=== PATIENT | male | born 1940 | race Caucasian/White ===

== ENCOUNTER 2018-12-09 14:26 | Inpatient (IN) | payer MEDICARE ==
[2018-12-09 16:35] LABS: CKMB 2.9 ng/mL (0-6.6)
[2018-12-09 20:30] LABS: Troponin I 0.061 ng/mL (< 0.028)
[2018-12-09] MEDS ORDERED: Ondansetron PF 4 MG/2 ML Vial IVP PRN (20:50)
[2018-12-09] MEDS ORDERED: Ondansetron ODT 4 MG TAB PO PRN (20:50)
[2018-12-09] MEDS ORDERED: Acetaminophen 325 MG TAB PO PRN (20:50)
[2018-12-09] MEDS ORDERED: HYDROcodone/Acetaminophen 5/325 mg Tablet PO PRN (20:53)
[2018-12-09] MEDS: Atorvastatin Calcium 40 MG TAB PO SCH (22:26)
[2018-12-09 22:58] LABS: Troponin I 0.069 ng/mL (< 0.028)
--- NOTE | 2018-12-10 00:55 | HP ---
PRIMARY CARE PHYSICIAN: Dominique Coulter MD CODE STATUS: Full code. TIME OF EVALUATION: 7:50 p.m. CHIEF COMPLAINT: Shortness of breath. HISTORY OF PRESENT ILLNESS: This is a 78-year-old male patient with past medical history of congestive heart failure, pacemaker, hypertension, reported a cancer of unknown type, came to the hospital after having severe gradually worsening shortness of breath that started today with no clear triggers. No alleviating factors, associated with significant bilateral leg edema. He reported the pacemaker has not been working properly. He also reported having some history of COPD, he already received some Lasix. The patient has responded well as reported and is feeling better now. The patient has also increased urinary frequency and the Daigle was placed. The patient also has hematuria, probably traumatic. REVIEW OF SYSTEMS: CONSTITUTIONAL: No fever. The patient has chills, generalized weakness. RESPIRATORY: The patient has cough. No sputum production. The patient has shortness of breath. CARDIOVASCULAR: No chest pain or palpitations. GASTROINTESTINAL: No nausea, no vomiting, diarrhea, or abdominal pain. AIR DISPATCHER: No dizziness, headache or feeling lightheaded. GENITOURINARY: No burning on urination. EXTREMITIES: Bilateral leg swelling. All other systems were reviewed and negative except for the findings mentioned above. PAST MEDICAL HISTORY: Positive for congestive heart failure, pacemaker, and hypertension. SURGICAL HISTORY: Pacemaker placement, back surgery. PSYCH HISTORY: No previous psych history. SOCIAL HISTORY: No alcohol. The patient usually smokes half a pack per day. FAMILY HISTORY: Reviewed and noncontributory for current presentation. KNOWN ALLERGIES: No known drug allergies. REPORTED MEDICATIONS: Aspirin. PHYSICAL EXAMINATION: VITAL SIGNS: On presentation, blood pressure 165/89, with heart rate 133, respiratory rate was 20, and temperature 97.6. Oxygen saturation was 95 on room air. Heart rate has been controlled lately. GENERAL APPEARANCE: The patient is alert, oriented, not in acute distress. HEENT: Eyes, normal conjunctivae. Moist oral mucosa. Anicteric. Bilateral JVD. RESPIRATORY: Bilateral air entry. No rales. No wheezes. Symmetric expansion. CARDIOVASCULAR: Normal rate, regular rhythm. No murmurs. No gallop. EXTREMITIES: Bilateral leg edema. ABDOMEN: Soft, normal bowel sounds. MUSCULOSKELETAL: Baseline range of motion and strength. No tenderness. SKIN: Warm, intact. No pallor. No rash. No redness. VASCULAR: Peripheral pulses are present. Capillary refill seems to be intact. NEURO: No evidence of any new focal weakness. Baseline speech. Cranial nerves seems to be intact. PSYCH: The patient is in good mood. No anxiety. Optimal judgment. DIAGNOSTIC STUDIES: EKG was reviewed. The patient has a paced rhythm with occasional conduction that is not paced, could be atrial fibrillation with aberrantly conducted complexes, QRS 154, QT corrected 522. Chest x-ray was reviewed. The patient has small bilateral pleural effusions. Mild vascular congestion, stable cardiomyopathy, cor pulmonale. No confluent pneumonia. LABORATORY DATA: Labs were reviewed. The patient has white count 7.7, hemoglobin 17, MCV 94, platelet count 262. Chemistry; sodium 136, potassium 4.3, chloride 102, carbon dioxide 22, anion gap 16, BUN 11, creatinine 1.05, GFR 69, glucose 112, calcium 9.4, total bilirubin 0.9, AST 26, ALT 19, alkaline phosphatase 61, CK-MB 2.9, troponin 0.069. Beta natriuretic peptide 1163. Serum total protein 7.0, albumin 4.1, globulin 2.9, albumin to globulin ratio is 1.4. ASSESSMENT AND PLAN: The patient presented to the hospital for the following medical problems: 1. Acute exacerbation of congestive heart failure, we will place the patient on Lasix, reconcile home medications. 2. Possible malfunction of the pacemaker, the patient is not pacing all the time, we will reconcile home medications, adjust the treatment as needed. Pacemaker interrogation. 3. Deep venous thrombosis prophylaxis. 4. Uncontrolled hypertension. Blood pressure was 165 on presentation, the patient had received some Lasix, we will monitor, we will treat accordingly. We will reconcile home medications. 5. Coronary artery disease, troponin mildly elevated. We will trend, likely secondary to [id number] myocardial infarction, type 2. We will treat accordingly. Initial troponin was 0.069. This is likely [id number] myocardial infarction, type 2. We will trend, we will adjust treatment depending on further results. Job ID: [id number]
[2018-12-10 05:42] LABS: #Basophils 0.1 thou/uL (0.0-0.2); #Eosinphils 0.1 thou/uL (0.0-0.7); #Lymphocytes 1.1 thou/uL (1.20-3.40); #Neutrophils 7.8 thou/uL (1.40-6.50); %Basophils 0.6 % (0.0-1.0); %Eosinophils 0.8 % (0.0-10.0); %Lymphocytes 10.7 % (21.0-51.0); %Neutrophils 77.9 % (42.0-75.0); Hemoglobin 14.8 g/dL (14.0-18.0); Mean Corpuscular HGB CONC 32.6 g/dL (32.0-36.0); Mean Corpuscular Hemoglobin 31.2 pg (27.0-31.0); Mean Corpuscular Volume 95.7 fL (78.0-98.0); Mean Platelet Volume 8.4 fL (7.4-10.4); Platelet Count 138 thou/uL (130-400); RBC Distribution Width 12.1 % (11.5-14.5); Red Blood Cell (RBC) Count 4.76 mill/uL (4.70-6.10)
[2018-12-10 06:00] LABS: Anion Gap 13 mmol/L (10-20); BUN (Urea Nitrogen) 14 mg/dL (8.4-25.7); Calc. Creatinine Clearance 55 mL/min (70-130); Calcium 8.8 mg/dL (7.8-10.44); Carbon Dioxide 28 mmol/L (23-31); Chloride 101 mmol/L (98-107); Estimated GFR-MDRD 77; Glucose 84 mg/dL (83-110); Potassium 3.6 mmol/L (3.5-5.1); Sodium 138 mmol/L (136-145)
[2018-12-10] MEDS ORDERED: Furosemide 20 MG TAB PO SCH (09:00)
[2018-12-10] MEDS ORDERED: Furosemide 40 MG/4 ML VIAL SLOW IVP SCH (09:00)
[2018-12-10] MEDS: Carvedilol 3.125 MG TAB PO SCH ×2 (09:07→17:22)
[2018-12-10] MEDS: Tamsulosin HCl 0.4 MG CAP PO SCH (09:07)
[2018-12-10] MEDS: Lisinopril 10 MG TAB PO SCH (09:07)
[2018-12-10] MEDS: Aspirin 81 mg Enteric Coated Tablet PO SCH (09:07)
[2018-12-10] MEDS: Enoxaparin Sodium 40 MG/0.4 ML SYRINGE SC SCH (09:08)
[2018-12-10] MEDS: Mometasone/Formoterol 120 PUFF INHALER INH SCH ×2 (10:52→19:03)
--- NOTE | 2018-12-10 11:54 | PDOC.PN ---
- Subjective Encounter Start Date: 12/10/18 Encounter Start Time: 09:30 Subjective: Patient examined today -: Reports he feels less SOB today, denies CP, palpations - Objective Resuscitation Status - Order Detail: 12/09/18 20:50 Resuscitation Status Routine Resuscitation Status: FULL: Full Resuscitation Vital Signs & Weight: Vital Signs (12 hours) Temp Pulse Resp BP Pulse Ox 12/10/18 07:58 97.5 F L 92 20 135/73 94 L 12/10/18 03:10 97.7 F 94 15 125/80 94 L 12/09/18 23:58 97.8 F 96 20 120/67 94 L Weight Weight 59.103 kg I&O: 12/09/18 12/10/18 12/11/18 06:59 06:59 06:59 Intake Total 240 Output Total 225 Balance 15 Result Diagrams: 12/10/18 05:31 12/10/18 05:31 Phys Exam - Physical Examination HEENT: PERRLA, moist MMs Neck: no nodes, no JVD Respiratory: no rhonchi Diffuse rhonchi, patient is a smoker Cardiovascular: RRR Gastrointestinal: soft, non-tender Has kim in place, draining tea colored urine Musculoskeletal: no edema, pulses present Neurological: non-focal Lymphatic: no nodes Psychiatric: normal affect, A&O x 3 Skin: no rash, normal turgor Dx/Plan (1) COPD (chronic obstructive pulmonary disease) Status: Chronic (2) CHF (congestive heart failure) Code(s): I50.9 - HEART FAILURE, UNSPECIFIED Status: Chronic (3) CHF exacerbation Code(s): I50.9 - HEART FAILURE, UNSPECIFIED Status: Acute (4) Urinary retention due to benign prostatic hyperplasia Code(s): N40.1 - BENIGN PROSTATIC HYPERPLASIA WITH LOWER URINARY TRACT SYMP; R33.8 - OTHER RETENTION OF URINE Status: Acute (5) Hematuria Code(s): R31.9 - HEMATURIA, UNSPECIFIED Status: Acute - Plan Consult cardiology, CHF exacerbation, runs of V tach -: Last Echo 10-15% in 2014, trops trending up, Repeat Echo today -: Will monitor I/O, urine -: Recheck labs, monitor VS, PRN nebs ordered -: IV lasix dc'd, Home dose of PO lasix added for tomorrow * .
[2018-12-10 13:28] VITALS: BMI 18.6
--- NOTE | 2018-12-10 15:58 | CON ---
DATE OF CONSULTATION: REASON FOR CONSULTATION: Congestive heart failure. HISTORY OF PRESENT ILLNESS: Mr. Reagan is a 78-year-old gentleman, who is a patient of Dr. Ryan Degroot. He underwent bypass surgery in 2009. He does have a history of cardiomyopathy, status post pacemaker. He recently complained of increased shortness of breath. No chest pain or pressure noted. He continues to smoke. He states he feels better after Lasix. PAST MEDICAL HISTORY: 1. CAD status post bypass surgery. 2. Ischemic cardiomyopathy. 3. BPH. 4. Continued tobacco abuse. 5. Hypertension. 6. ICD placement. ALLERGIES: NONE. SOCIAL HISTORY: Continued tobacco use. REVIEW OF SYSTEMS: Ten-point review of systems is reviewed and as above, otherwise negative. HOME MEDICATIONS: 1. Lasix. 2. Lisinopril. 3. Carvedilol. 4. Aspirin. 5. Spironolactone. 6. Finasteride. 7. Atorvastatin. 8. Tamsulosin. PHYSICAL EXAMINATION: GENERAL: Patient is a pleasant male, who is in no acute distress. The patient appears older than stated age. VITAL SIGNS: Blood pressure 135/73, pulse 92, temperature 97.5. NEUROLOGIC: The patient is alert and oriented x3 with no focal neurologic deficits. HEENT: Sclerae without icterus. Mouth has moist mucous membranes with normal pallor. NECK: No JVD. Carotid upstroke brisk. No bruits bilaterally. LUNGS: Crackles noted bilaterally. BACK: No scoliosis or kyphosis. CARDIAC: Regular rate and rhythm with normal S1 and S2. No S3 or S4 noted. No significant rubs, murmurs, thrills, or gallops noted throughout the precordium. PMI is not displaced. There is no parasternal heave. ABDOMEN: Soft, nontender, nondistended. No peritoneal signs present. No hepatosplenomegaly. No abnormal striae. EXTREMITIES: 2+ femoral and 2+ dorsalis pedis pulses. No cyanosis, clubbing, or edema. SKIN: No gross abnormalities. PERTINENT LABORATORY DATA: Hemoglobin 14.8. Creatinine 0.95. Peak troponin 0.06. IMPRESSION: 1. Acute on chronic systolic heart failure. 2. Coronary artery disease. 3. Tobacco abuse. 4. Status post bypass surgery. RECOMMENDATIONS: The patient has responded well to Lasix. He states he feels much better. His Lasix has been changed to p.o. dosing. Continue carvedilol, atorvastatin, and aspirin. We will also continue lisinopril. If stable, he will be okay from my standpoint to discharge home in a.m. with close outpatient followup. I did psychotherapist counselor him on cessation of tobacco products. Job ID: [id number]
[2018-12-10] MEDS: Atorvastatin Calcium 40 MG TAB PO SCH (21:03)
[2018-12-11] MEDS: Mometasone/Formoterol 120 PUFF INHALER INH SCH ×2 (07:12→19:50)
[2018-12-11 08:19] LABS: #Eosinphils 0.1 thou/uL (0.0-0.7); #Lymphocytes 1.2 thou/uL (1.20-3.40); #Monocytes 0.9 thou/uL (0.11-0.59); #Neutrophils 5.1 thou/uL (1.40-6.50); %Basophils 0.1 % (0.0-1.0); %Eosinophils 1.1 % (0.0-10.0); %Lymphocytes 15.9 % (21.0-51.0); %Monocytes 12.1 % (0.0-10.0); %Neutrophils 70.8 % (42.0-75.0); Hemoglobin 14.1 g/dL (14.0-18.0); Mean Corpuscular HGB CONC 32.2 g/dL (32.0-36.0); Mean Corpuscular Hemoglobin 30.7 pg (27.0-31.0); Mean Corpuscular Volume 95.2 fL (78.0-98.0); Mean Platelet Volume 8.6 fL (7.4-10.4); Platelet Count 121 thou/uL (130-400); RBC Distribution Width 12.1 % (11.5-14.5); Red Blood Cell (RBC) Count 4.59 mill/uL (4.70-6.10); White Blood Cell (WBC) Count 7.2 thou/uL (4.8-10.8)
[2018-12-11 08:39] LABS: Anion Gap 11 mmol/L (10-20); BUN (Urea Nitrogen) 15 mg/dL (8.4-25.7); Calc. Creatinine Clearance 59 mL/min (70-130); Calcium 8.5 mg/dL (7.8-10.44); Carbon Dioxide 27 mmol/L (23-31); Chloride 99 mmol/L (98-107); Estimated GFR-MDRD 80; Glucose 80 mg/dL (83-110); Potassium 3.4 mmol/L (3.5-5.1); Sodium 134 mmol/L (136-145)
[2018-12-11] MEDS: Lisinopril 10 MG TAB PO SCH (08:41)
[2018-12-11] MEDS: Aspirin 81 mg Enteric Coated Tablet PO SCH (08:41)
[2018-12-11] MEDS: Carvedilol 6.25 MG TAB PO SCH ×2 (08:41→16:48)
[2018-12-11] MEDS: Tamsulosin HCl 0.4 MG CAP PO SCH (08:41)
[2018-12-11] MEDS ORDERED: Furosemide 20 MG TAB PO SCH (09:00)
--- NOTE | 2018-12-11 10:54 | PDOC.CTH ---
Cardiology Progress Note - Subjective Patient still SOB. Now with hematuria. Reviewed ICD check. Frequent episodes of NSVT while inpatient and ICD check. Asymptomatic. - Objective Vital Signs Temp Pulse Resp BP BP BP Pulse Ox 12/11/18 08:41 123/56 L 12/11/18 07:39 97.6 F 71 20 123/56 L 94 L 12/11/18 03:53 97.7 F 100 20 117/62 96 12/10/18 23:03 97.6 F 84 18 113/51 L 96 Admit Weight 130 lb 8 oz Weight 134 lb 12/10/18 12/11/18 12/12/18 06:59 06:59 06:59 Intake Total 240 1700 Output Total 225 875 Balance 15 825 - Physical Examination General/Neuro: alert & oriented x3, other: (cachetic) Neck: no JVD present Lungs: other: (bilateral rhonchi) Heart: RRR Abdomen: NT/ND Extremities: other: (no edema; decreased pedal pulses) - Labs Result Diagrams: 12/11/18 13:17 12/11/18 08:05 Troponin/CKMB CK-MB (CK-2) 2.9 ng/mL (0-6.6) 12/09/18 15:39 Troponin I 0.069 ng/mL (< 0.028) H 12/09/18 22:27 - Assessment/Plan 1. NSVT 2. Acute on chronic systolic CHF 3. ICMO 4. Tobacco Abuse 5. Moderate-Severe PAD 6. Hematuria 7. Long history of noncompliance. Continue current meds. Will obtain CXR. Not a candidate for Amio given advanced COPD. Hesitant to add sotalol due to history of noncompliance. patient not seen in office since 2015. No recent ischemic work-up. Probably needs repeat cath. RG-Pt with no ischemic workup recently. Concerned about increased VT noted after interrogation of ICD. Add sotalol. Pt with COPD and amio may not be a good option. May need a stress test but more likley will need angio.
[2018-12-11] MEDS ORDERED: Sodium Chloride 0.9% 500 ML IV SCH (11:00)
[2018-12-11] MEDS: Enoxaparin Sodium 40 MG/0.4 ML SYRINGE SC SCH (11:37)
--- NOTE | 2018-12-11 12:01 | PDOC.PN ---
- Subjective Encounter Start Date: 12/11/18 Encounter Start Time: 11:59 Mr. Reagan was seen today in follow-up CHF exacerbation and Hematuria and urinary retention - Objective Resuscitation Status - Order Detail: 12/09/18 20:50 Resuscitation Status Routine Resuscitation Status: FULL: Full Resuscitation MAR Reviewed: Yes Vital Signs & Weight: Vital Signs (12 hours) Temp Pulse Resp BP BP Pulse Ox 12/11/18 08:41 123/56 L 12/11/18 07:39 97.6 F 71 20 123/56 L 94 L 12/11/18 03:53 97.7 F 100 20 117/62 96 Weight Admit Weight 130 lb 8 oz Weight 134 lb I&O: 12/10/18 12/11/18 12/12/18 06:59 06:59 06:59 Intake Total 240 1700 Output Total 225 875 Balance 15 825 Result Diagrams: 12/11/18 08:05 12/11/18 08:05 Phys Exam - Physical Examination Respiratory: no wheezing, no rales, no rhonchi, clear to auscultation bilateral Cardiovascular: RRR, no significant murmur, no rub Gastrointestinal: soft, non-tender, positive bowel sounds Musculoskeletal: no edema, pulses present Dx/Plan (1) Acute on chronic systolic heart failure Code(s): I50.23 - ACUTE ON CHRONIC SYSTOLIC (CONGESTIVE) HEART FAILURE Status : Acute (2) Ventricular tachycardia Code(s): I47.2 - VENTRICULAR TACHYCARDIA Status: Chronic (3) Hematuria Code(s): R31.9 - HEMATURIA, UNSPECIFIED Status: Acute (4) Urinary retention due to benign prostatic hyperplasia Code(s): N40.1 - BENIGN PROSTATIC HYPERPLASIA WITH LOWER URINARY TRACT SYMP; R33.8 - OTHER RETENTION OF URINE Status: Acute (5) COPD (chronic obstructive pulmonary disease) Status: Chronic - Plan * Acute on chronic systolic heart failure- compensated- Work-up is in progress by the Cardiology team * NSVT- as above- await further recommendations from Cardiology * Hematuria and Urinary retention- likely due to BPH, which is decompensated due to him being off Flomax a few days.- continue Daigle catheter, and will add CBI, consult his Urologist for further recommendations * COPD- compensated - continue Duonebs as needed and Dulera * Will monitor his H&H due to the Hematuria
--- NOTE | 2018-12-11 12:36 | PDOC.PN ---
- Subjective Encounter Start Date: 12/11/18 Encounter Start Time: 12:30 Subjective: Patient examined, Dr. Chaparro also saw patient today -: Patient eating lunch, denies any complaints -: Urine in kim bag is dark with small clots - Objective Resuscitation Status - Order Detail: 12/09/18 20:50 Resuscitation Status Routine Resuscitation Status: FULL: Full Resuscitation Vital Signs & Weight: Vital Signs (12 hours) Temp Pulse Resp BP BP Pulse Ox 12/11/18 11:33 97.6 F 78 16 80/57 L 95 12/11/18 08:41 123/56 L 12/11/18 07:39 97.6 F 71 20 123/56 L 94 L 12/11/18 03:53 97.7 F 100 20 117/62 96 Weight Admit Weight 59.194 kg Weight 60.781 kg I&O: 12/10/18 12/11/18 12/12/18 06:59 06:59 06:59 Intake Total 240 1700 Output Total 225 875 Balance 15 825 Result Diagrams: 12/11/18 08:05 12/11/18 08:05 Phys Exam - Physical Examination HEENT: PERRLA, moist MMs Neck: no nodes Respiratory: no wheezing, no rales, clear to auscultation bilateral diffuse rhonchi Cardiovascular: RRR, no significant murmur AICD in place upper left chest Musculoskeletal: no edema Neurological: non-focal, normal sensation Lymphatic: no nodes Psychiatric: normal affect, A&O x 3 Skin: no rash, normal turgor Dx/Plan (1) COPD (chronic obstructive pulmonary disease) Status: Chronic (2) CHF (congestive heart failure) Code(s): I50.9 - HEART FAILURE, UNSPECIFIED Status: Chronic (3) CHF exacerbation Code(s): I50.9 - HEART FAILURE, UNSPECIFIED Status: Acute (4) Urinary retention due to benign prostatic hyperplasia Code(s): N40.1 - BENIGN PROSTATIC HYPERPLASIA WITH LOWER URINARY TRACT SYMP; R33.8 - OTHER RETENTION OF URINE Status: Acute (5) Hematuria Code(s): R31.9 - HEMATURIA, UNSPECIFIED Status: Acute (6) Ventricular tachycardia Code(s): I47.2 - VENTRICULAR TACHYCARDIA Status: Chronic - Plan Cardiology has been consulted and has seen pt today -: Kim still in place, 500ml in bag after irrigation/NS 500ml blus -: Urine is dark with small clots, UA and culture ordered -: Urology consulted added per Dr. Chaparro -: Seen by Dr. Chaparro today as well... please see her note * .
[2018-12-11 13:37] LABS: Hemoglobin 14.9 g/dL (14.0-18.0)
--- NOTE | 2018-12-11 14:29 | RAD ---
CHEST 2 VIEWS: Date: 12/11/18 HISTORY: Shortness of breath. COMPARISON: 06/30/15 and 12/09/18 exams. FINDINGS: Heart size within normal limits. There are postop sternotomy changes. Lungs are clear of any infiltra marisel. No signs of failure. External defibrillator device is present. There is some minimal blunting to the costophrenic angles. Old right rib fractures. IMPRESSION: Minimal blunting to the costophrenic angles, which could be chronic in nature. There is suggestion of an element of COPD. No evidence of failure. POS: [facility]
[2018-12-11 14:35] LABS: Bilirubin Negative (Negative); Blood, Urine Large (Negative); Clarity CLOUDY (Clear); Glucose, Urine (Dipstick) Negative (Negative); Leukocyte Small (Negative); Nitrite Negative (Negative); Protein, Urine (Dipstick) 100 mg/dL (Neg-Trace); Specific Gravity, Urine 1.016 (1.002-1.036); pH, Urine 5.5 (5.0-9.0)
[2018-12-11 14:37] LABS: Bacteria/HPF None Seen HPF (None Seen); Hyaline Casts/LPF 0-3 HYALINE CAST LPF (0-3 Hyaline); RBC/HPF GREATER THAN 50-TNTC HPF (0-3); Squamous Epithelial None Seen HPF (0-3); WBC/HPF None Seen HPF (0-3)
--- NOTE | 2018-12-11 15:56 | CT ---
CT OF ABDOMEN AND PELVIS PERFORMED WITH AND WITHOUT CONTRAST ENHANCEMENT: 12/11/18 HISTORY: Gross hematuria. Urinary retention. Small bilateral pleural effusions are noted. There is some patchy parenchymal changes of the right lo wer lobe which could represent some minimal infiltrate. There is linear atelectasis in the left base. The liver, spleen, pancreas and gallbladder regions appear unremarkable. Right and left adrenal glands are normal in appearance. Right and left kidneys are normal in size and not obstructed. There are no renal calculi demonstrated. There are small hypodensities involving bot h kidneys, statistically most likely cysts. One has a few punctate peripheral calcifications in the m id pole region of the right kidney corresponding to more of a Bosniak type II lesion. The largest of these is on the left side measuring 1.7 cm. There is no significant periaortic adenopathy. There is m oderate atherosclerotic change of the aorta. Moderate atherosclerotic disease and suggestion of some narrowing at the origin of the superior mesenteric artery. The infrarenal aorta is ectatic but not aneurysmal. It measures in the 2.[address] OF PELVIS PERFORMED WITH AND WITHOUT CONTRAST ENHANCEMENT: Daigle catheter is seen within the bladder. There is diffuse bladder wall thickening. The prostate is enlarged. Some diverticulosis of the sigmoid colon. IMPRESSION: 1. No evidence of renal or ureteral calculi. Hypodensities in both kidneys are felt to represent cysts. 2. Tiny bilateral pleural effusions with suggestion of some minimal infiltrate in the right lung base. 3. Diffuse bladder wall thickening probably on the basis of bladder outlet obstruction. POS: [facility]
[2018-12-11] MEDS ORDERED: ISOVUE-370 76%-LOCM 1 ML ONE (16:35)
--- NOTE | 2018-12-11 19:00 | CON ---
DATE OF CONSULTATION: 12/11/2018 UROLOGY CONSULTATION REASON FOR CONSULTATION: Urinary retention and gross hematuria. HISTORY OF PRESENT ILLNESS: Mr. Reagan is a 78-year-old male with past urologic history significant for BPH. He reports he saw Dr. Bergeron within the past year as an outpatient. He takes tamsulosin as an outpatient. The patient is admitted currently for acute on chronic systolic heart failure. He had increasing shortness of breath. The patient was evaluated and was given Lasix in [place] and subsequently, he had increasing urinary frequency and hesitancy and difficulty urinating. The patient eventually presented to the hospital, at which point, he once again received diuretic and had increasing voiding difficulty and a Daigle was placed. There was reportedly approximately 1 L of urine within the bladder. Initially, the urine was clear and then, he developed gross hematuria. Prior to this, he has had one episode of gross hematuria in the remote past. He reports he had been doing well at home, on tamsulosin. No significant frequency/urgency/nocturia. No prior procedures on the prostate. No other complaints. REVIEW OF SYSTEMS: Full 12-point review of systems was performed and is negative other than that mentioned in the HPI. PAST MEDICAL HISTORY: Congestive heart failure, coronary artery disease, pacemaker placement, and hypertension. PAST SURGICAL HISTORY: Back surgery, pacemaker placement. FAMILY HISTORY: No history of genitourinary malignancy. SOCIAL HISTORY: No alcohol. He has a [id number] smoking history and currently smokes half a pack per day. ALLERGIES: NO KNOWN DRUG ALLERGIES. MEDICATIONS: Aspirin 325 mg. The patient reports he takes tamsulosin, but it is unclear whether he is currently taking this as an outpatient or not. PHYSICAL EXAMINATION: VITAL SIGNS: Temperature 97.6, pulse 78, respirations 16, oxygen saturation 95% on room air, and blood pressure 100/62. GENERAL: He is alert and oriented x3. No apparent distress. HEENT: Normocephalic, atraumatic. NECK: Supple. No masses. No lymphadenopathy. CARDIOVASCULAR: Regular rate and rhythm. PULMONARY: Breathing unlabored. No wheezing. ABDOMEN: Soft, nontender, and nondistended. No masses or organomegaly. No suprapubic tenderness to palpation. No CVA tenderness. GENITOURINARY: Normal penis without concerning lesion. The scrotum and testes palpably normal. Daigle catheter in place draining blood-tinged urine. Left direct inguinal hernia, reducible and nontender. EXTREMITIES: Warm and well perfused. No edema. NEUROLOGIC: No focal deficits. LABORATORY DATA: White blood cell count 7.2, hemoglobin 14.1, hematocrit 43.7, and platelets 121. Sodium 134, potassium 3.4, chloride 99, bicarb 27, BUN 15, and creatinine 0.92. ASSESSMENT: A 78-year-old male with gross hematuria and urinary retention, history of BPH. PLAN: I discussed the natural history and clinical implications of both urinary retention and gross hematuria with the patient in detail. The patient's urinary retention manifests itself after several doses of Lasix. Prior to this, he reports not having much problem. It is unclear whether he was taking his tamsulosin regularly or not as an outpatient. I also discussed potential etiologies of the gross hematuria including traumatic etiology from the Daigle catheter, infection, inflammation, urolithiasis, and malignancy. Given his smoking history, I will go ahead and perform a workup and order a CT IVP. The patient will require outpatient cystoscopy. If he is an active patient with Dr. Bergeron, this can be performed with her. Otherwise, he can follow up with me as an outpatient for cystoscopy unless his condition worsens in the interim. The patient is receiving tamsulosin as an inpatient and he should continue this as well. Regarding the Daigle catheter, depending on when the patient is otherwise ready for discharge, we will make a decision on whether to give the patient a voiding trial or send him home with his Daigle. Job ID: [id number]
[2018-12-11 19:20] LABS: Hemoglobin 13.8 g/dL (14.0-18.0)
[2018-12-11] MEDS: Sotalol HCl 80 MG TAB PO SCH (22:02)
[2018-12-11] MEDS: Atorvastatin Calcium 40 MG TAB PO SCH (22:03)
[2018-12-12 05:51] LABS: #Eosinphils 0.1 thou/uL (0.0-0.7); #Lymphocytes 1.1 thou/uL (1.20-3.40); #Monocytes 0.6 thou/uL (0.11-0.59); #Neutrophils 3.9 thou/uL (1.40-6.50); %Basophils 0.5 % (0.0-1.0); %Eosinophils 1.9 % (0.0-10.0); %Lymphocytes 19.6 % (21.0-51.0); %Monocytes 10.6 % (0.0-10.0); %Neutrophils 67.3 % (42.0-75.0); Hemoglobin 13.9 g/dL (14.0-18.0); Mean Corpuscular HGB CONC 33.1 g/dL (32.0-36.0); Mean Corpuscular Hemoglobin 31.6 pg (27.0-31.0); Mean Corpuscular Volume 95.7 fL (78.0-98.0); Mean Platelet Volume 8.8 fL (7.4-10.4); Platelet Count 128 thou/uL (130-400); Red Blood Cell (RBC) Count 4.38 mill/uL (4.70-6.10); White Blood Cell (WBC) Count 5.8 thou/uL (4.8-10.8)
[2018-12-12 06:07] LABS: Anion Gap 14 mmol/L (10-20); BUN (Urea Nitrogen) 15 mg/dL (8.4-25.7); Calc. Creatinine Clearance 75 mL/min (70-130); Carbon Dioxide 22 mmol/L (23-31); Chloride 101 mmol/L (98-107); Estimated GFR-MDRD Greater than 90; Glucose 79 mg/dL (83-110); Potassium 3.6 mmol/L (3.5-5.1); Sodium 133 mmol/L (136-145)
--- NOTE | 2018-12-12 06:59 | PRG ---
DATE OF SERVICE: 12/12/2018 SUBJECTIVE: The patient is resting comfortably. No discomfort. He had a CT scan performed yesterday. No worsening of his gross hematuria. No other complaints. OBJECTIVE: VITAL SIGNS: Temperature is 97.5, pulse 86, respirations 16, oxygen saturation 93% on room air, and blood pressure 100/61. GENERAL: He is resting comfortably, in no apparent distress. CARDIOVASCULAR: Regular rate and rhythm. PULMONARY: Breathing unlabored. No wheezing. ABDOMEN: Soft, nontender/nondistended. No masses or organomegaly. No suprapubic tenderness to palpation. No CVA tenderness. GENITOURINARY: Daigle catheter in place, draining blood-tinged urine with no clot present. EXTREMITIES: Warm and well perfused. No edema. NEUROLOGIC: No focal deficits. LABORATORY DATA: White blood cell count 5.8, hemoglobin 13.9, hematocrit 42.0, and platelets 128. Sodium 133, potassium 3.6, chloride 101, bicarbonate 22, BUN 15, and creatinine 0.75. RADIOLOGY DATA: CT of the abdomen and pelvis with and without contrast demonstrated no significant renal or ureteral calculi, likely bilateral renal cysts. No renal masses or hydroureteronephrosis. No other urologic abnormalities. See scan report for details. ASSESSMENT: A 78-year-old male with BPH, urinary retention, gross hematuria, status post Daigle placement. PLAN: At this point, the patient's hematuria seems to be improving. His CT urogram did not demonstrate any significant abnormality to explain the gross hematuria. The patient will likely need outpatient cystoscopy at some point. He has been on tamsulosin. If the patient is otherwise stable for discharge, he can be discharged home with his Daigle catheter in place and followup can be scheduled with Dr. Bergeron who is his primary urologist for voiding trial. Otherwise, if the patient is going to be kept in-house for other reasons, he may be appropriate for voiding trial as an inpatient. Job ID: [id number]
[2018-12-12] MEDS: Mometasone/Formoterol 120 PUFF INHALER INH SCH ×2 (07:15→19:28)
[2018-12-12] MEDS ORDERED: Sodium Chloride 0.9% 10 ML ONE (07:48)
[2018-12-12] MEDS: Aspirin 81 mg Enteric Coated Tablet PO SCH (09:02)
[2018-12-12] MEDS: Carvedilol 6.25 MG TAB PO SCH ×2 (09:03→17:41)
[2018-12-12] MEDS: Sotalol HCl 80 MG TAB PO SCH ×2 (09:04→20:37)
[2018-12-12] MEDS: Tamsulosin HCl 0.4 MG CAP PO SCH (09:05)
--- NOTE | 2018-12-12 12:15 | PDOC.PN ---
- Subjective Encounter Start Date: 12/12/18 Encounter Start Time: 12:13 Subjective: Patient complaining of sob, feels his chest is tight trying to get air in. -: Known COPD but not normally sob. No hemoptysis. Mild cough. -: Denies any chest pain. Kim in place with hematuria improving. No suprapubic pain. - Objective Resuscitation Status - Order Detail: 12/09/18 20:50 Resuscitation Status Routine Resuscitation Status: FULL: Full Resuscitation Vital Signs & Weight: Vital Signs (12 hours) Temp Pulse Resp BP BP BP Pulse Ox 12/12/18 10:45 87/57 L 12/12/18 09:04 86 104/57 L 12/12/18 09:03 104/57 L 12/12/18 08:40 97.9 F 86 20 104/57 L 92 L 12/12/18 03:15 97.5 F L 86 16 100/61 93 L Weight Admit Weight 130 lb 8 oz Weight 139 lb I&O: 12/11/18 12/12/18 12/13/18 06:59 06:59 06:59 Intake Total 1700 240 Output Total 875 400 Balance 825 -160 Result Diagrams: 12/12/18 04:47 12/12/18 04:47 Phys Exam - Physical Examination Constitutional: NAD Well-developed but very thin HEENT: PERRLA, oral pharynx no lesions Neck: no nodes, supple, full ROM crackles at right lung base Cardiovascular: RRR Gastrointestinal: soft, non-tender, no distention, positive bowel sounds Musculoskeletal: no edema, pulses present Neurological: normal sensation, moves all 4 limbs Psychiatric: normal affect, A&O x 3 Dx/Plan (1) Urinary retention Code(s): R33.9 - RETENTION OF URINE, UNSPECIFIED Status: Acute (2) Hematuria Code(s): R31.9 - HEMATURIA, UNSPECIFIED Status: Acute (3) CHF exacerbation Code(s): I50.9 - HEART FAILURE, UNSPECIFIED Status: Chronic (4) CHF (congestive heart failure) Code(s): I50.9 - HEART FAILURE, UNSPECIFIED Status: Chronic (5) COPD (chronic obstructive pulmonary disease) Status: Chronic (6) Ventricular tachycardia Code(s): I47.2 - VENTRICULAR TACHYCARDIA Status: Chronic - Plan cont current plan of care, incentive spirometry Noncompliant with home meds. Hypotensive. Lisinopril d/diomedes. Monitor BP. -: Patient on Sotalol as per Dr. Wade. Awaiting review, possible angio. -: Infiltrate in RLL with crackles on exam. SOB. WCC normal. Afebrile. -: Nebs, ?abx, will discuss with Dr. Chaparro. -: Per Urology, cleared for discharge w/ kim and fup with Dr. Bergeron. For cystoscopy as an outpatient. ADDENDUM: Discussed with Dr. Chaparro, agrees adding on Doxycyline. Continue nebs, and add-on tessalon perles for cough. Otherwise, continue treatment as per Cardiology.
[2018-12-12] MEDS: Lisinopril 10 MG TAB PO SCH (12:19)
--- NOTE | 2018-12-12 12:35 | PRG ---
DATE OF SERVICE: 12/12/2018 SUBJECTIVE: Mr. Reagan is currently doing well with no current complaints. He had one episode of 34 beats of nonsustained VT. It appears he has had left VT outside of that one episode after starting sotalol. OBJECTIVE: VITAL SIGNS: Blood pressure 104/57, pulse 86, and temperature 97.9. LUNGS: Clear to auscultation. HEART: Regular rate and rhythm. ABDOMEN: Soft, nontender, nondistended. EXTREMITIES: No edema. IMPRESSION: 1. Ischemic cardiomyopathy. 2. Continued tobacco abuse. 3. Nonsustained ventricular tachycardia. RECOMMENDATIONS: Mr. Reagan has had 62 episodes of nonsustained VT over the last several months. He has one paced terminated event with no discharge of his device. He does have a history of COPD. We will be reluctant to add amiodarone therapy for suppression. I have added sotalol 80 mg b.i.d. He may need ischemic workup prior to discharge. Job ID: [id number]
[2018-12-12] MEDS: guaiFENesin ER 600 MG TAB PO SCH (17:43)
[2018-12-12] MEDS ORDERED: Benzonatate 100 MG CAP PO PRN (18:36)
[2018-12-12] MEDS: Atorvastatin Calcium 40 MG TAB PO SCH (20:37)
[2018-12-12] MEDS: Doxycycline 100 MG CAP PO SCH (20:37)
[2018-12-13] MEDS: Tamsulosin HCl 0.4 MG CAP PO SCH ×2 (10:25→21:24)
[2018-12-13] MEDS: Doxycycline 100 MG CAP PO SCH ×2 (10:25→21:24)
[2018-12-13] MEDS: Aspirin 81 mg Enteric Coated Tablet PO SCH (10:25)
[2018-12-13] MEDS: Carvedilol 6.25 MG TAB PO SCH ×2 (10:25→17:54)
[2018-12-13] MEDS: guaiFENesin ER 600 MG TAB PO SCH ×2 (10:26→21:23)
[2018-12-13] MEDS: Finasteride 5 MG TAB PO SCH (10:41)
--- NOTE | 2018-12-13 10:48 | PQF ---
Chase Reagan MICHAEL PA [id number] CLINICAL DOCUMENTATION IMPROVEMENT CLARIFICATION FORM: ICD-10 Updated PLEASE DO AN ADDENDUM TO THE PROGRESS NOTE WITH ANY DOCUMENTATION UPDATES OR ADDITIONS AND CARRY THROUGH TO DC SUMMARY. THANK YOU. DATE: 12/13/18 ATTN: GRACY LUKE Please exercise your independent, professional judgment in responding to the clarification form. Clinical indicators are provided on the bottom of this form for your review. Please check appropriate box(s): AMI TYPE: [ x] NSTEMI [ ] AMI Type II [ ] DEMAND ISCHEMIA [ ] Other diagnosis [ ] Unable to determine In addition, please specify: Present on Admission (POA): [ x ] Yes [ ] No [ ] Unable to determine CLINICAL INDICATORS - SIGNS / SYMPTOMS / LABS TROPONIN I : 0.051, 0.061, 0.069 (12/09) PHYSICIAN H & P 12/09/18 (RUBI) : ASSESSMENT/PLAN - 5) TROPONIN MILDLY ELEVATED, WE WILL TREND, LIKELY SECONDARY TO NON-ST- ELEVATION MYOCARDIAL INFARCTION, TYPE 2. WE WILL TREAT ACCORDINGLY. INITIAL TROPONIN WAS 0.069. THIS IS LIKELY NON ST- ELEVATION MYOCARDIAL INFARCTION, TYPE 2. NO FURTHER MENTION OF NON STEMI TYPE II TO DATE RISK: ACUTE ON CHRONIC SYSTOLIC HEART FAILURE CAD TREATMENT: CARDIOLOGY CONSULT SERIAL TROPONINS THANK YOU! HELEN (This form is maintained as a part of the permanent medical record) 2014 [employer]. All Rights Reserved Helen Ray RN, BSN [email or web address] Office: [phone] [facility]
[2018-12-13] MEDS: Mometasone/Formoterol 120 PUFF INHALER INH SCH ×2 (11:14→18:46)
--- NOTE | 2018-12-13 11:17 | PQF ---
Chase Reagan MICHAEL PA [id number] CLINICAL DOCUMENTATION IMPROVEMENT CLARIFICATION FORM: ICD-10 Updated PLEASE DO AN ADDENDUM TO THE PROGRESS NOTE WITH ANY DOCUMENTATION UPDATES OR ADDITIONS AND CARRY THROUGH TO DC SUMMARY. THANK YOU. DATE: 12/13/2018 ATTN: GRACY LUKE Please exercise your independent, professional judgment in responding to the clarification form. Clinical indicators are provided on the bottom of this form for your review. Please check appropriate box(s): [ ] Pneumonia secondary to (specify organism / underlying disease) [ ] Simple Pneumonia (community acquired - nosocomial) [ ] Bronchopneumonia [ x ] Pneumonia of unknown etiology [ ] Other diagnosis [ ] Unable to determine In addition, please specify: Present on Admission (POA): [ x ] Yes [ ] No [ ] Unable to determine For continuity of documentation, please document condition throughout progress notes and discharge summary. Thank You. CLINICAL INDICATORS - SIGNS / SYMPTOMS / LABS PHYSICIAN PN 12/12/18 (SRINIVASAN) PLAN: INFILTRATE IN RRL WITH CRACKLES ON EXAM. ...DISCUSSED WITH DR. MENDIOLA, AGREES ADDING DOXYCYCLINE. 12/11/18: CT OF ABD/PELVIS: IMPRESSION ( TINY BILATERAL PLEURAL EFFUSIONS WITH SUGGESTION OF SOME MINIMAL INFILTRATE IN THE RIGHT LUNG BASE) RISK: HX OF COPD CURRENT TOBACCO ABUSE ACUTE ON CHRONIC SYSTOLIC HEART FAILURE TREATMENT: PO DOXYCYCLINE (12/12-PRESENT) THANK YOU! ROSE MARY (This form is maintained as a part of the permanent medical record) 2014 [employer]. All Rights Reserved Rose Mary Ray, RN, BSN [email or web address] Office: [phone] [facility]
[2018-12-13] MEDS: Sotalol HCl 80 MG TAB PO SCH (12:45)
--- NOTE | 2018-12-13 12:56 | PDOC.CTH ---
Cardiology Progress Note - Subjective He is doing better. He developed gross hematuria yesterday and continues to have some blood in kim drainage. - Objective Vital Signs Temp Pulse Resp BP BP BP Pulse Ox 12/13/18 12:49 97.7 F 88 16 94/61 12/13/18 12:45 88 94/61 12/13/18 11:13 76 16 12/13/18 10:25 102/66 12/13/18 08:00 97.3 F L 81 16 97/62 98 12/13/18 04:00 97.6 F 84 16 115/66 92 L Admit Weight 130 lb 8 oz Weight 136 lb 12/12/18 12/13/18 12/14/18 06:59 06:59 06:59 Intake Total 240 1200 Output Total 400 1150 Balance -160 50 - Physical Examination General/Neuro: alert & oriented x3, NAD Neck: no JVD present Lungs: CTA, unlabored respirations Heart: RRR Abdomen: NT/ND Extremities: other: (no edema) - Telemetry Telemetry Rhythm: NSR - Labs Result Diagrams: 12/12/18 04:47 12/12/18 04:47 Troponin/CKMB CK-MB (CK-2) 2.9 ng/mL (0-6.6) 12/09/18 15:39 Troponin I 0.069 ng/mL (< 0.028) H 12/09/18 22:27 - Assessment/Plan 1. NSVT 2. Acute on chronic systolic CHF 3. Ischemic CM EF at 20-25% 4. Tobacco Abuse 5. Moderate-Severe PAD 6. Gross hematuria 7. Long history of noncompliance. [address] 9. Acute on chronic systolic heart failure, improved. PLAN: - Continue Sotalol. - Continue other meds. - Will plan on [facility] once hematuria resolved and no longer an issue likely in one month or so. - Needs one more day of monitoring of QTc for his initial sotalol dosing.
--- NOTE | 2018-12-13 15:45 | CON ---
DATE OF CONSULTATION: 12/13/2018 ELECTROPHYSIOLOGY CONSULTATION REFERRING PHYSICIAN: Ha Wade MD REASON FOR CONSULTATION: Nonsustained ventricular tachycardia. HISTORY OF PRESENT ILLNESS: Mr. Reagan is a 78-year-old gentleman, known to our practice for history of ischemic cardiomyopathy, chronic systolic heart failure, left bundle branch block, and ventricular dyssynchrony, who has inclusion of a RESEARCH AND DEVELOPMENT ENGINEER-ICD that was implanted in 2009. He was last seen in clinic in July 2018 , at which point he was doing well without any significant arrhythmia issues and normal functioning device. He was at that time 97% atrial paced for sinus bradycardia and 99% biventricular paced and benefiting from consisting cardiac resynchronization therapy. Unfortunately, Mr. Reagan was noticing increased shortness of breath and presented to [facility] for further evaluation. He felt that he was taking too many medications at home and states he stopped taking his medications approximately 2 months ago, cold turkey. He initially did not notice any significant changes in his health status until the increasing shortness of breath and heart failure started to progress. He continues to smoke cigarettes. He has been given some Lasix in the hospital, which helped resolve his shortness of breath, but he does have some hypotension since he has been admitted. His BiV-ICD was interrogated and showed nonsustained ventricular tachycardia episodes that were self terminating that were quite rare until mid October when they began to increase in frequency. He had 1 episode of treated VT on October 10 that was successfully terminated with ATP sequences. No defibrillator shock has been required to terminate his ventricular tachycardia, arrhythmia issues. Also of note in the device interrogation, his OptiVol fluid index readings have been consistently elevated above threshold since late September into early October showing a study, but gradual increase. Currently, Mr. Reagan is resting comfortably in bed. He denies any heart racing, palpitations, chest pain, pressure, syncope, near syncope, stroke, or stroke- like symptoms. He endorses he did have substantial shortness of breath on presenting to the hospital that is largely resolved. He has not been very active since admitted to the hospital. He has a Daigle catheter in place and is having some hematuria issues as well. PAST MEDICAL HISTORY: 1. Ischemic cardiomyopathy. 2. Ejection fraction 15%, NYHA functional class 3 status. 3. Left bundle branch block. 4. Ventricular tachycardia. 5. Medtronic RESEARCH AND DEVELOPMENT ENGINEER-ICD in situ. 6. Coronary artery disease, status post bypass surgery. 7. Tobacco abuse. 8. BPH. ALLERGIES: NONE. SOCIAL HISTORY: Lives alone. Continues to abuse tobacco. Denies alcohol or illicit drug use. FAMILY HISTORY: Denies sudden cardiac or early-onset coronary artery disease, noncontributory. REVIEW OF SYSTEMS: A 12-point review of systems was conducted and is negative except that listed above in HPI. HOME MEDICATIONS: Include: 1. Furosemide 20 mg daily. 2. Lisinopril 20 mg daily. 3. Carvedilol 25 mg p.o. b.i.d. 4. Aspirin 325 mg p.o. daily. 5. Spironolactone 12.5 mg p.o. daily. 6. Finasteride 5 mg p.o. daily. 7. Atorvastatin calcium 40 mg at bedtime. 8. Tamsulosin 0.4 mg p.o. daily. As mentioned above, the patient stopped all home medications approximately 2 months prior. PHYSICAL EXAMINATION: VITAL SIGNS: Temperature 97.7 degrees Fahrenheit, pulse 88, blood pressure 94/61 , respirations 16, and oxygen is 95% on room air. GENERAL: The patient is alert and oriented, in no apparent distress. Speech is clear. He is somewhat a poor historian. NECK: Supple without jugular venous distention sitting upright. RESPIRATIONS: Even and nonlabored. There are crackles heard to the left lower base and expiratory wheezes to the right lung alexis. NEUROLOGIC: Grossly intact and nonfocal. Gait was not assessed. DATABASE: Device interrogation, the patient has a Medtronic Protecta XT RESEARCH AND DEVELOPMENT ENGINEER-D. Date of implant is 07/03/2015. Battery voltage is 2.97. Lead impedances are stable. Capture thresholds are stable. Current mode is DDDR with a lower rate limit of 70. One episode of ventricular tachycardia successfully terminated with ATP sequence was documented. 62 episodes of nonsustained ventricular tachycardia have been detected largely since mid October. AP 90%, MORTGAGE OR LOAN UNDERWRITER 96.8%. OptiVol fluid index is elevated above threshold ongoing since early October. Telemetry and EKG all were personally reviewed and largely reflect atrial ventricular pacing with no evidence of cardiac resynchronization therapy. Initial 12-lead EKGs are difficult to interpret with a large amount of artifact in the baseline and ectopy. LABORATORY DATA: Chemistry; potassium 3.6, creatinine 0.75. Serial troponins are monitored and currently at 0.069. Hematology was reviewed and is unremarkable. Echocardiogram on 12/10, ejection fraction 20% to 25%. IMPRESSION: 1. Acute on chronic systolic heart failure with severely reduced ejection fraction at 20% to 25%. 2. Ischemic cardiomyopathy. 3. Nonsustained ventricular tachycardia with sotalol initiated for arrhythmia suppression on the evening of 12/11/2018. 4. Ongoing tobacco abuse. 5. Medication noncompliance. 6. Inclusion of Medtronic RESEARCH AND DEVELOPMENT ENGINEER-D. 7. Hypotension. 8. Hematuria. 9. QT prolongation on Sotalol ~560 msec PLAN AND RECOMMENDATIONS: 1. check BNP for fluid status. 2. Discontinue sotalol, QT~ 560 based on 12 lead EKG just obtained. 3. Ultimately, this seems to be a response to him discontinuing all of his home medications 2 months ago, which is when his fluid accumulation began as well as the onset of nonsustained ventricular tachycardia episodes. Recommend resuming and optimizing his heart failure medical management with cardiology and stress the importance of compliance with medications. Job ID: [id number] KATHARINE
--- NOTE | 2018-12-13 16:31 | PDOC.PN ---
- Subjective Encounter Start Date: 12/13/18 Encounter Start Time: 16:28 Patient lying in bed, he reports feeling better today. He is denying any further chest pain or shortness of breath. He remains on sotalol and tolerating well. Will require one more day of monitoring. - Objective Resuscitation Status - Order Detail: 12/09/18 20:50 Resuscitation Status Routine Resuscitation Status: FULL: Full Resuscitation MAR Reviewed: Yes Vital Signs & Weight: Vital Signs (12 hours) Temp Pulse Resp BP BP Pulse Ox 12/13/18 14:35 71 12 12/13/18 12:49 97.7 F 88 16 94/61 12/13/18 12:45 88 94/61 12/13/18 11:13 76 16 12/13/18 10:25 102/66 12/13/18 08:00 97.3 F L 81 16 97/62 95 Weight Admit Weight 130 lb 8 oz Weight 136 lb I&O: 12/12/18 12/13/18 12/14/18 06:59 06:59 06:59 Intake Total 240 1200 Output Total 400 1150 Balance -160 50 Result Diagrams: 12/12/18 04:47 12/12/18 04:47 Radiology Reviewed by me: Yes Phys Exam - Physical Examination Constitutional: NAD HEENT: PERRLA, oral pharynx no lesions Neck: no nodes, full ROM Respiratory: no wheezing, clear to auscultation bilateral Cardiovascular: RRR, no rub Gastrointestinal: soft, positive bowel sounds Musculoskeletal: no edema, pulses present Neurological: non-focal, moves all 4 limbs Lymphatic: no nodes Psychiatric: normal affect, A&O x 3 Skin: no rash, cap refill <2 seconds Dx/Plan (1) NSVT (nonsustained ventricular tachycardia) Code(s): I47.2 - VENTRICULAR TACHYCARDIA Status: Acute (2) Hematuria Code(s): R31.9 - HEMATURIA, UNSPECIFIED Status: Acute (3) CHF (congestive heart failure) Code(s): I50.9 - HEART FAILURE, UNSPECIFIED Status: Chronic (4) COPD (chronic obstructive pulmonary disease) Status: Chronic - Plan cont current plan of care * Continue Sotalol * Cardiology following * Continue EKG monitoring for changes * Continue other home medications * Patient likely discharged tomorrow if cleared by cardiology
--- NOTE | 2018-12-13 19:23 | PRG ---
DATE OF SERVICE: 12/13/2018 SUBJECTIVE: The consultation was actually already done by Dr. Garrett, but he was a patient of mine, that is why I am following up. I previously saw him in June 2017, increased his tamsulosin to b.i.d. and he already been on finasteride and then noted 4 to 6 rbc's. Had him repeat that sample and noticed that again, so I asked him to follow up for both cystoscopy and uroflow. He did not want to do the cystoscopy, so just never followed up at all. In the last month, he decided to stop all his medications because he did not think they were doing anything or needed them. This included the tamsulosin and finasteride. I encouraged him not to do that. He has not had gross hematuria until his catheter was placed. He has had no prior urinary tract infections or kidney stones. No prior episodes of retention. OBJECTIVE: Alert and oriented. Irregular rhythm, regular rate, no MGRs, Bl wheeze noted. On exam, the catheter is in place and did not appear to be stuck with the balloon in the prostate and I did ask the nurse to place catheter care higher. Testes were descended bilaterally without masses. Phallus is circumcised. The urine in the tubing was clear and in the bag with pink-tinged. LABORATORY DATA: Urinalysis from the showed only too numerous to count rbc' s and 100 protein, but with otherwise negative and a CT from 12/11 with contrast showed cyst 1 with cortical calcification making a Bosniak 2, but otherwise not concerning and an enlarged prostate with a large intravesical component with the Daigle in the bladder with air in, otherwise decompressed bladder. ASSESSMENT AND PLAN: We have a 78-year-old male with benign prostatic hyperplasia and retention and now gross hematuria most likely related to the prostate, but he does have a significant smoking history. I told him that we cannot rule out a bladder mass or cancer without cystoscopy, which he should have as an outpatient in the office. I increased the tamsulosin to twice a day. I added back his finasteride and we will try for a voiding trial tomorrow. I have written that the catheter should come out at 5 in the morning. His PVR should be checked after void and documented. Job ID: [id number] [facility]
[2018-12-13] MEDS: Atorvastatin Calcium 40 MG TAB PO SCH (21:24)
[2018-12-14] MEDS: Mometasone/Formoterol 120 PUFF INHALER INH SCH ×2 (07:42→19:59)
[2018-12-14] MEDS: Tamsulosin HCl 0.4 MG CAP PO SCH ×2 (08:35→21:31)
[2018-12-14] MEDS: Carvedilol 6.25 MG TAB PO SCH ×2 (08:38→17:20)
[2018-12-14] MEDS: Aspirin 81 mg Enteric Coated Tablet PO SCH (08:38)
[2018-12-14] MEDS: Doxycycline 100 MG CAP PO SCH ×2 (08:38→21:31)
[2018-12-14] MEDS: guaiFENesin ER 600 MG TAB PO SCH ×2 (08:39→21:31)
--- NOTE | 2018-12-14 09:23 | EKG ---
Test Reason : Blood Pressure : / mmHG Vent. Rate : 076 BPM Atrial Rate : 076 BPM P-R Int : 096 ms QRS Dur : 170 ms QT Int : 570 ms P-R-T Axes : 079 -77 094 degrees QTc Int : 641 ms AV sequential or dual chamber electronic pacemaker When compared with ECG of 09-DEC-2018 17:52, (Unconfirmed) Vent. rate has decreased BY [address] Idris HUANG ([id number]) on 12/14/2018 9:22:54 AM Referred By: [facility] Confirmed By:DR. Idris HUANG
--- NOTE | 2018-12-14 11:18 | ULT ---
RENAL ULTRASOUND: HISTORY: Hematuria. TECHNIQUE: Real-time imaging of the right and left kidneys was performed. FINDINGS: The right kidney measures 11 and the left kidney 9.7 cm in size. There are bilateral renal cysts pre sent. The largest on the right is in the lower pole region, measuring 1.2 cm, and on the left, a mid to lower pole left renal cyst measures 1.9 cm. The bladder shows a markedly thickened bladder wall. The prostate appears enlarged. IMPRESSION: 1. Bilateral renal cysts. No signs of obstruction. 2. Markedly thickened bladder wall with an enlarged prostate. POS: [facility]
[2018-12-14] MEDS: Finasteride 5 MG TAB PO SCH (11:40)
--- NOTE | 2018-12-14 13:13 | PDOC.CTH ---
Cardiology Progress Note - Subjective EP PROGRESS NOTE: 12/14/18 Seen and evaluated as follow up of NSVT. Sotalol stopped last night. No new EP concerns or complaints. Feeling well today. He is concerned about his low blood pressures. 8 Point ROS: unremarkable - Objective Vital Signs Temp Pulse Resp BP BP BP Pulse Ox 12/14/18 11:36 98.0 F 77 16 91/60 92 L 12/14/18 08:44 97.8 F 69 19 98/61 95 12/14/18 07:40 78 16 94 L 12/14/18 04:00 97.3 F L 87 18 100/60 94 L Admit Weight 130 lb 8 oz Weight 140 lb 2 oz 12/13/18 12/14/18 12/15/18 06:59 06:59 06:59 Intake Total 1200 850 Output Total 1150 2200 Balance 50 -1350 - Physical Examination General/Neuro: alert & oriented x3, NAD Neck: carotid US brisk, no JVD present Lungs: CTA, unlabored respirations Heart: PMI normal, RRR Abdomen: NT/ND, soft - Telemetry Telemetry Rhythm: SR, AV paced - Labs Result Diagrams: 12/12/18 04:47 12/12/18 04:47 Troponin/CKMB CK-MB (CK-2) 2.9 ng/mL (0-6.6) 12/09/18 15:39 Troponin I 0.069 ng/mL (< 0.028) H 12/09/18 22:27 - Assessment/Plan IMPRESSION: 1. Acute on chronic systolic heart failure with severely reduced ejection fraction at 20% to 25%. 2. Ischemic cardiomyopathy. 3. Nonsustained ventricular tachycardia, with sotalol initiated for arrhythmia suppression on the evening of 12/11/2018 (4 doses given before discontinued) 4. Ongoing tobacco abuse. 5. Medication noncompliance. 6. Inclusion of Medtronic DRILL PRESS OPERATOR FOR METAL-D, normal operation 7. Hypotension. 8. Hematuria. 9. QT prolongation on Sotalol ~560 msec PLAN AND RECOMMENDATIONS: 1. Discontinued sotalol, QT stabilizing. Rhythm is stable with no recurrences of NSVT 2. Ultimately, this seems to be a response to him discontinuing all of his home medications 2 months ago, which is when his fluid accumulation began as well as the onset of nonsustained ventricular tachycardia episodes. Recommend resuming and optimizing his heart failure medical management with cardiology and stress the importance of compliance with medications. 3. His BNP is minimally elevated at ~330.
--- NOTE | 2018-12-14 14:54 | PRG ---
DATE OF SERVICE: 12/14/2018 SUBJECTIVE: The patient's catheter came out this morning. He has peed twice. He said that second time was a little bit easier and more restrained than the first. He does not feel like he is having any trouble emptying. It was bloody both times, but no clots or straining. He has not been bladder scanned yet. We reviewed how he must continue tamsulosin twice a day and finasteride even as outpatient, and ultimately, might benefit from procedure to help him urinate. He definitely needs a cystoscopy and reviewed this again today and how I cannot rule out bladder masses that looking in. However, a renal ultrasound included the bladder which was performed today, 12/14/2018, showed only simple cysts and very thickened, but uniformly thickened bladder with enlarged prostate sticking into the bladder base itself. We reviewed how he still needs cystoscopy. OBJECTIVE: GENERAL: He appears comfortable in bed. The urinal does not have any urine in to show color or volume, but it was reported as 100 mL. VITAL SIGNS: He has been afebrile. Blood pressure 91/60, heart rate 77, and saturating 92% on room air. LABORATORY DATA: No new labs. The renal ultrasound was already reviewed from today, 12/14/2018. ASSESSMENT: This is a 78-year-old male with benign prostatic hyperplasia, retention, hematuria, most likely related to that. Certainly deserves cystoscopy given his smoking history. We reviewed this in detail on how he does have to come to the [place] office for this, but I do see patients in the [place] office when there is not a procedure that is needed. As long as his residual is less than 200, I would just keep the Daigle out for now and continue his medications, but ultimately, the patient would benefit from a BPH procedure based on his large obstructing intravesical lobe. Continue tamsulosin twice a day and finasteride for now. If there are concerns about emptying, we can discuss whether catheter would need to go back in, but hopefully this can remain out for now. Job ID: [id number]
--- NOTE | 2018-12-14 16:42 | PDOC.PN ---
- Subjective Encounter Start Date: 12/14/18 Encounter Start Time: 16:40 Subjective: Patient discontinued off sotalol last night due to hypotension, BP low in -: the 90s. He denies chest pain, shortness of breath or abdominal pain -: Urology following and recommend cystoscopy - Objective Resuscitation Status - Order Detail: 12/09/18 20:50 Resuscitation Status Routine Resuscitation Status: FULL: Full Resuscitation MAR Reviewed: Yes Vital Signs & Weight: Vital Signs (12 hours) Temp Pulse Resp BP BP BP Pulse Ox 12/14/18 16:12 97.3 F L 85 18 77/50 L 94 L 12/14/18 13:45 101 H 16 93 L 12/14/18 11:36 98.0 F 77 16 91/60 92 L 12/14/18 08:44 97.8 F 69 19 98/61 95 12/14/18 07:40 78 16 94 L Weight Admit Weight 130 lb 8 oz Weight 140 lb 2 oz I&O: 12/13/18 12/14/18 12/15/18 06:59 06:59 06:59 Intake Total 1200 850 Output Total 1150 2200 Balance 50 -1350 Result Diagrams: 12/12/18 04:47 12/12/18 04:47 Radiology Reviewed by me: Yes Phys Exam - Physical Examination Constitutional: NAD HEENT: PERRLA, oral pharynx no lesions Neck: no nodes, no JVD Respiratory: no wheezing, clear to auscultation bilateral Cardiovascular: RRR, no significant murmur Gastrointestinal: soft, positive bowel sounds Musculoskeletal: no edema, pulses present Neurological: non-focal, normal sensation Lymphatic: no nodes Psychiatric: normal affect, A&O x 3 Skin: no rash, cap refill <2 seconds Dx/Plan (1) NSVT (nonsustained ventricular tachycardia) Code(s): I47.2 - VENTRICULAR TACHYCARDIA Status: Resolved (2) Hematuria Code(s): R31.9 - HEMATURIA, UNSPECIFIED Status: Acute (3) CHF (congestive heart failure) Code(s): I50.9 - HEART FAILURE, UNSPECIFIED Status: Chronic (4) COPD (chronic obstructive pulmonary disease) Status: Chronic (5) BPH (benign prostatic hyperplasia) Code(s): N40.0 - BENIGN PROSTATIC HYPERPLASIA WITHOUT LOWER URINRY TRACT SYMP Status: Acute - Plan cont current plan of care, continue antibiotics Continue trial void, urology following cont finasteride and tamsulosin -: Sotalol discontinued, continue on medical management -: Monitor BP closely, if persistant hypotension will consider gentle -: hydration with 250ml * .
[2018-12-14] MEDS ORDERED: Sodium Chloride 0.9% 250 ML IV SCH (17:15)
--- NOTE | 2018-12-14 20:07 | PDOC.CTH ---
Cardiology Progress Note - Subjective Doing well. BP borderline low. May be overdiuresed. - Objective Vital Signs Temp Pulse Resp BP BP BP Pulse Ox 12/14/18 19:59 87 18 92 L 12/14/18 17:19 91/54 L 12/14/18 16:12 97.3 F L 85 18 77/50 L 94 L 12/14/18 13:45 101 H 16 93 L 12/14/18 11:36 98.0 F 77 16 91/60 92 L 12/14/18 08:44 97.8 F 69 19 98/61 95 Admit Weight 130 lb 8 oz Weight 140 lb 2 oz 12/13/18 12/14/18 12/15/18 06:59 06:59 06:59 Intake Total 1200 850 Output Total 1150 2200 Balance 50 -1350 - Physical Examination General/Neuro: alert & oriented x3, NAD Neck: no JVD present Lungs: CTA, unlabored respirations Heart: RRR Abdomen: NT/ND Extremities: other: (no edema) - Telemetry Telemetry Rhythm: NSR, PVC's - Labs Result Diagrams: 12/12/18 04:47 12/12/18 04:47 Troponin/CKMB CK-MB (CK-2) 2.9 ng/mL (0-6.6) 12/09/18 15:39 Troponin I 0.069 ng/mL (< 0.028) H 12/09/18 22:27 - Assessment/Plan 1. NSVT 2. Acute on chronic systolic CHF 3. Ischemic CM EF at 20-25% 4. Tobacco Abuse 5. Moderate-Severe PAD 6. Gross hematuria 7. Long history of noncompliance. 8. AICD in place 9. Acute on chronic systolic heart failure, improved. PLAN: - No sotalol due to prolonged QT. - Continue other meds. - Would give back some fluid for his hypotension, likely over diuresed. - PVC's minimized since restarting his CHF meds.
[2018-12-14] MEDS ORDERED: Tamsulosin HCl 0.4 MG CAP PO SCH (21:00)
[2018-12-14] MEDS: Atorvastatin Calcium 40 MG TAB PO SCH (21:31)
[2018-12-15] MEDS: Mometasone/Formoterol 120 PUFF INHALER INH SCH ×2 (07:41→19:09)
[2018-12-15] MEDS: Doxycycline 100 MG CAP PO SCH ×2 (08:27→20:08)
[2018-12-15] MEDS: Tamsulosin HCl 0.4 MG CAP PO SCH ×2 (08:27→20:08)
[2018-12-15] MEDS: guaiFENesin ER 600 MG TAB PO SCH ×2 (08:27→20:08)
[2018-12-15] MEDS: Carvedilol 6.25 MG TAB PO SCH ×2 (08:28→17:03)
[2018-12-15] MEDS: Aspirin 81 mg Enteric Coated Tablet PO SCH (08:28)
[2018-12-15] MEDS: Finasteride 5 MG TAB PO SCH (08:32)
--- NOTE | 2018-12-15 10:31 | PRG ---
DATE OF SERVICE: 12/15/2018 SUBJECTIVE: The patient's catheter came out yesterday. He was voiding without difficulty and originally had a PVR of 180 and then overnight, there was a concern for incomplete emptying and more hematuria until a catheter was placed for < 750mL because that is what was remaining from the morning output including what came out. It might have been only 400mL at the time. He was hand irrigated and reports that they did not get significant clot, and he reports that he was not significantly uncomfortable nor did he feel over distended and significant relief when the catheter was placed. We reviewed how that implies he did not necessarily have the sense that his bladder was distended-- which shows some damage to the bladder already. PHYSICAL EXAMINATION: GENERAL: He is comfortable in the bed. He has been afebrile, but his latest heart rate was 102 and he had 725 out since the catheter was replaced and voided more than a liter when the catheter had been removed. I secured the catheter at a higher position after I irrigated it with saline and was only able to get a couple of small clots. He may still have a clot remaining in the bladder versus thickened copious bladder with the catheter getting up against the wall itself, but it is draining his urine fine, which was red without clots in the tubing. No new labs. Renal ultrasound from 12/14/2018 was reviewed and revealed simple cyst and uniformly thickened bladder, but at the time the catheter was not in, this did not reveal any sort of mass other than the obvious intravesical prostatic lobe. ASSESSMENT: This is a 78-year-old gentleman with benign prostatic hyperplasia obstruction and hematuria most likely related to that, but still deserves cystoscopy as an outpatient to rule out concern for bladder tumors. I suspect he is going to require surgery in order to adequately void in which case he would need cardiac clearance for that and possibly cardiac intervention before proceeding with anything from Urologic standpoint. For now, we will keep the indwelling and increase fluid as Cardiology allows depending on the color of the urine. Continue tamsulosin twice a day and finasteride once a day for now. Check a UA today. Job ID: [id number] MTDD
[2018-12-15 11:51] LABS: Bacteria/HPF 1+ HPF (None Seen); Hyaline Casts/LPF NONE SEEN LPF (0-3 Hyaline); RBC/HPF GREATER THAN 50-TNTC HPF (0-3); Squamous Epithelial 0-3 HPF (0-3); WBC/HPF 0-3 HPF (0-3)
--- NOTE | 2018-12-15 12:24 | PDOC.CTH ---
Cardiology Progress Note - Subjective Mr Reagan feeling well. No palpitations and improving dyspnea noted. - ROS shortness of breath - Objective Vital Signs Temp Pulse Resp BP BP Pulse Ox 12/15/18 08:28 137/82 12/15/18 07:39 102 H 20 94 L 12/15/18 03:10 97.5 F L 76 12 99/56 L 93 L 12/15/18 02:20 81 18 95 Admit Weight 130 lb 8 oz Weight 138 lb 12.8 oz 12/14/18 12/15/18 12/16/18 06:59 06:59 06:59 Intake Total 850 1545 Output Total 2200 1745 Balance -1350 -200 - Physical Examination General/Neuro: alert & oriented x3, NAD Neck: no JVD present Lungs: CTA Heart: RRR Abdomen: no HSM Extremities: + edema B (None) - Telemetry Telemetry Rhythm: SR. No VT - Labs Result Diagrams: 12/12/18 04:47 12/12/18 04:47 Troponin/CKMB CK-MB (CK-2) 2.9 ng/mL (0-6.6) 12/09/18 15:39 Troponin I 0.069 ng/mL (< 0.028) H 12/09/18 22:27 - Assessment/Plan 1. Acute on chronic systolic heart failure with severely reduced ejection fraction at 20% to 25%, Ischemic cardiomyopathy. 2. Nonsustained ventricular tachycardia, with sotalol initiated for arrhythmia suppression on the evening of 12/11/2018 (4 doses given before discontinued) 4. Ongoing tobacco abuse. 5. Medication noncompliance. 6. 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 Hypotension. 8. Hematuria. 9. QT prolongation on Sotalol ~560 msec PLAN AND RECOMMENDATIONS: 1. Discontinued sotalol, QT stabilizing. Rhythm is stable with no recurrences of NSVT 2. Ultimately, this seems to be a response to him discontinuing all of his home medications 2 months ago, which is when his fluid accumulation began as well as the onset of nonsustained ventricular tachycardia episodes. Recommend resuming and optimizing his heart failure medical management with cardiology and stress the importance of compliance with medications. 3. His BNP is minimally elevated at ~330 Remains stable. Continue current management. .
--- NOTE | 2018-12-15 16:58 | PDOC.PN ---
- Subjective Encounter Start Date: 12/15/18 Encounter Start Time: 16:56 Patient lying in bed, he reports feeling better today. No symptoms of chest pain or shortness of breath. No abdominal pain. Kim in place as he was unable to void last night. Blood present. Await urine culture - Objective Resuscitation Status - Order Detail: 12/09/18 20:50 Resuscitation Status Routine Resuscitation Status: FULL: Full Resuscitation MAR Reviewed: Yes Vital Signs & Weight: Vital Signs (12 hours) Temp Pulse Resp BP BP BP Pulse Ox 12/15/18 13:43 96 20 94 L 12/15/18 12:09 97.4 F L 98 20 100/64 92 L 12/15/18 08:28 137/82 12/15/18 08:25 98 F 97 18 137/82 92 L 12/15/18 07:39 102 H 20 94 L Weight Admit Weight 130 lb 8 oz Weight 138 lb 12.8 oz I&O: 12/14/18 12/15/18 12/16/18 06:59 06:59 06:59 Intake Total 850 1545 Output Total 2200 1745 Balance -1350 -200 Result Diagrams: 12/12/18 04:47 12/12/18 04:47 Phys Exam - Physical Examination Constitutional: NAD HEENT: PERRLA, oral pharynx no lesions Neck: no nodes, full ROM Respiratory: no wheezing, clear to auscultation bilateral Cardiovascular: RRR, no rub Gastrointestinal: soft, positive bowel sounds Musculoskeletal: no edema, pulses present Neurological: non-focal, moves all 4 limbs Lymphatic: no nodes Psychiatric: normal affect, A&O x 3 Skin: no rash, cap refill <2 seconds Dx/Plan (1) NSVT (nonsustained ventricular tachycardia) Code(s): I47.2 - VENTRICULAR TACHYCARDIA Status: Resolved (2) Hematuria Code(s): R31.9 - HEMATURIA, UNSPECIFIED Status: Acute (3) CHF (congestive heart failure) Code(s): I50.9 - HEART FAILURE, UNSPECIFIED Status: Chronic Qualifiers: Heart failure type: systolic (4) COPD (chronic obstructive pulmonary disease) Status: Chronic (5) BPH (benign prostatic hyperplasia) Code(s): N40.0 - BENIGN PROSTATIC HYPERPLASIA WITHOUT LOWER URINRY TRACT SYMP Status: Acute - Plan cont current plan of care, kim catheter, continue antibiotics * Continue medical management * Continue doxy * Await culture results * Cardiology, EP services and urology following * Patient will require outpatient following * Encouraged compliance * BP better today * Hopeful for discharge tomorrow if okay with cardiology and urology
--- NOTE | 2018-12-15 17:27 | PDOC.CTH ---
Cardiology Progress Note - Subjective Doing better. No new issue. BP more stable now. - Objective Vital Signs Temp Pulse Resp BP BP BP BP 12/15/18 17:03 97.5 F L 100 16 121/79 121/79 12/15/18 13:43 96 20 12/15/18 12:09 97.4 F L 98 20 100/64 12/15/18 08:28 137/82 12/15/18 08:25 98 F 97 18 137/82 12/15/18 07:39 102 H 20 Pulse Ox 12/15/18 17:03 94 L 12/15/18 13:43 94 L 12/15/18 12:09 92 L 12/15/18 08:28 12/15/18 08:25 92 L 12/15/18 07:39 94 L Admit Weight 130 lb 8 oz Weight 138 lb 12.8 oz 12/14/18 12/15/18 12/16/18 06:59 06:59 06:59 Intake Total 850 1545 Output Total 2200 1745 Balance -1350 -200 - Physical Examination General/Neuro: alert & oriented x3, NAD Neck: no JVD present Lungs: CTA, unlabored respirations Heart: RRR Abdomen: NT/ND Extremities: other: (no edema) - Telemetry Telemetry Rhythm: NSR - Labs Result Diagrams: 12/12/18 04:47 12/12/18 04:47 Troponin/CKMB CK-MB (CK-2) 2.9 ng/mL (0-6.6) 12/09/18 15:39 Troponin I 0.069 ng/mL (< 0.028) H 12/09/18 22:27 - Assessment/Plan 1. NSVT 2. Acute on chronic systolic CHF 3. Ischemic CM EF at 20-25% 4. Tobacco Abuse 5. Moderate-Severe PAD 6. Gross hematuria 7. Long history of noncompliance. 8. AICD in place 9. Acute on chronic systolic heart failure, improved. PLAN: - Continue other meds. - Once BP allows will restart Lisinopril at lower dose. - PVC's minimized since restarting his CHF meds. - Still has hematuria, kim to be left in place. - As an outpatient if hematuria has resolved will plan on [facility].
[2018-12-15] MEDS: Cefdinir 300 MG CAP PO SCH (20:08)
[2018-12-15] MEDS: Atorvastatin Calcium 40 MG TAB PO SCH (20:08)
[2018-12-16] MEDS: Mometasone/Formoterol 120 PUFF INHALER INH SCH (07:42)
[2018-12-16] MEDS: Carvedilol 6.25 MG TAB PO SCH ×2 (08:59→18:03)
[2018-12-16] MEDS: Aspirin 81 mg Enteric Coated Tablet PO SCH (09:00)
[2018-12-16] MEDS: guaiFENesin ER 600 MG TAB PO SCH ×2 (09:00→18:04)
[2018-12-16] MEDS: Cefdinir 300 MG CAP PO SCH ×2 (09:00→18:03)
[2018-12-16] MEDS: Finasteride 5 MG TAB PO SCH (09:01)
[2018-12-16] MEDS: Tamsulosin HCl 0.4 MG CAP PO SCH ×2 (09:01→18:04)
[2018-12-16] MEDS: Doxycycline 100 MG CAP PO SCH ×2 (09:01→18:04)
[2018-12-16 16:29] VITALS: BP 112/71; TEMP 98.1
--- NOTE | 2018-12-16 16:44 | PRG ---
DATE OF SERVICE: 12/16/2018 SUBJECTIVE: The patient did well overnight. Catheter was draining fine, it is now yellow in the tubing. He has no concerns or complaints. He is agreeable to continue his medications. We reviewed how the problem is, he may not ever void without the procedure and still then there is no guarantee. In order to do the procedure, he has to have cardiac clearance. In order to have the cardiac clearance, he needs a procedure that puts him on blood thinners, which may worsen his hematuria. PHYSICAL EXAMINATION: VITAL SIGNS: He has been afebrile with vital signs stable. Saturating 94%-95% on room air. He has put out more than 1500 in the last 24 hours and the urine in the tubing is yellow. The urine from yesterday did show 1+ bacteria despite being on doxycycline, so I changed him to Omnicef. ASSESSMENT: A 78-year-old gentleman with significant cardiac disease, but also benign prostatic hypertrophy with obstruction and hematuria related to that, but still in need of outpatient cystoscopy. He should continue tamsulosin twice a day, finasteride once a day, complete at least five days of Omnicef from an infection standpoint and then follow up in the office for a voiding trial and cystoscopy. I also asked him to read about intermittent catheterization in case he is unable to void once the catheter comes out, we can teach him this as well. Job ID: [id number] MTDD
--- NOTE | 2018-12-16 17:00 | PDOC.CTH ---
Cardiology Progress Note - Subjective EP Progress no0te 12/16/18 Pt is feeling better. No orthopnea, no dizzy spells. - Objective Vital Signs Temp Pulse Resp BP BP Pulse Ox 12/16/18 15:30 98.1 F 89 18 112/71 95 12/16/18 13:15 86 18 95 12/16/18 12:06 97.9 F 100 18 111/69 94 L 12/16/18 08:59 124/80 12/16/18 08:57 97.9 F 92 18 94 L 12/16/18 07:40 91 16 93 L Admit Weight 130 lb 8 oz Weight 137 lb 14.4 oz 12/15/18 12/16/18 12/17/18 06:59 06:59 06:59 Intake Total 1545 1955 Output Total 1745 1550 Balance -200 405 - Physical Examination General/Neuro: alert & oriented x3, NAD Neck: no JVD present Lungs: CTA Heart: RRR Abdomen: no HSM, soft - Telemetry Telemetry Rhythm: SR/Paced. 10 beat NS-VT overnight. - Labs Result Diagrams: 12/12/18 04:47 12/12/18 04:47 Troponin/CKMB CK-MB (CK-2) 2.9 ng/mL (0-6.6) 12/09/18 15:39 Troponin I 0.069 ng/mL (< 0.028) H 12/09/18 22:27 - Assessment/Plan 1. Acute on chronic systolic heart failure with severely reduced ejection fraction at 20% to 25%, Ischemic cardiomyopathy. 2. Nonsustained ventricular tachycardia, with sotalol initiated for arrhythmia suppression on the evening of 12/11/2018 (4 doses given before discontinued) 4. Ongoing tobacco abuse. 5. Medication noncompliance. 6. Inclusion of [employer]-D, normal operation 7. Hypotension. 8. Hematuria. 9. QT prolongation on Sotalol ~560 msec PLAN AND RECOMMENDATIONS: 1. Discontinued sotalol, QT stabilizing. Rhythm is stable with no recurrences of NSVT 2. Ultimately, this seems to be a response to him discontinuing all of his home medications 2 months ago, which is when his fluid accumulation began as well as the onset of non-sustained ventricular tachycardia episodes. Recommend resuming and optimizing his heart failure medical management with cardiology and stress the importance of compliance with medications. Would continue maximizing his medical regimen as tolerated. CPM. Seem to be responding with lowered arrhythmia burden. Would sign out. call if questions. Outpt follow up in 4-6 weeks.
--- NOTE | 2018-12-16 17:36 | PDOC.CTH ---
Cardiology Progress Note - Subjective Doing well. No new issues. Minimal amount of blood on kim catheter. - Objective Vital Signs Temp Pulse Resp BP BP Pulse Ox 12/16/18 15:30 98.1 F 89 18 112/71 95 12/16/18 13:15 86 18 95 12/16/18 12:06 97.9 F 100 18 111/69 94 L 12/16/18 08:59 124/80 12/16/18 08:57 97.9 F 92 18 94 L 12/16/18 07:40 91 16 93 L Admit Weight 130 lb 8 oz Weight 137 lb 14.4 oz 12/15/18 12/16/18 12/17/18 06:59 06:59 06:59 Intake Total 1545 1955 Output Total 1745 1550 Balance -200 405 - Physical Examination General/Neuro: alert & oriented x3, NAD Neck: no JVD present Lungs: unlabored respirations Heart: RRR Abdomen: NT/ND Extremities: other: (no edema) - Telemetry Telemetry Rhythm: NSR - Labs Result Diagrams: 12/12/18 04:47 12/12/18 04:47 Troponin/CKMB CK-MB (CK-2) 2.9 ng/mL (0-6.6) 12/09/18 15:39 Troponin I 0.069 ng/mL (< 0.028) H 12/09/18 22:27 - Assessment/Plan 1. NSVT 2. Acute on chronic systolic CHF 3. Ischemic CM EF at 20-25% 4. Tobacco Abuse 5. Moderate-Severe PAD 6. Gross hematuria 7. Long history of noncompliance. 8. AICD in place 9. Acute on chronic systolic heart failure, improved. PLAN: - Continue other meds. - BP still borderline low to restart Lisinopril. - PVC's minimized since restarting his CHF meds. - Kim to be left in place. - C as an outpatient if hematuria has resolved.
[2018-12-16] MEDS: Atorvastatin Calcium 40 MG TAB PO SCH (18:03)
== END 2018-12-16 19:25 | disposition home or self-care (01) | DRG 280 ==
LOC: ERS 14:26 → OBSVTOIN 19:08 → 2SW 19:08 → 2NO 12-11 16:37
PROVIDERS: ADMIT Emergency Medicine; ATTEND Emergency Medicine
DX: I21.4 Non-ST elevation (NSTEMI) myocardial infarction (principal); I50.23 Acute on chronic systolic (congestive) heart failure; J18.9 Pneumonia, unspecified organism; I47.1 Supraventricular tachycardia; J44.0 Chronic obstructive pulmonary disease with (acute) lower respiratory infection; I11.0 Hypertensive heart disease with heart failure; I25.5 Ischemic cardiomyopathy; I25.10 Atherosclerotic heart disease of native coronary artery without angina pectoris; I45.81 Long QT syndrome; I70.209 Unspecified atherosclerosis of native arteries of extremities, unspecified extremity; N40.1 Benign prostatic hyperplasia with lower urinary tract symptoms; R31.0 Gross hematuria; R33.8 Other retention of urine; Z95.810 Presence of automatic (implantable) cardiac defibrillator; F17.210 Nicotine dependence, cigarettes, uncomplicated; Z95.1 Presence of aortocoronary bypass graft; Z79.82 Long term (current) use of aspirin
CPT/HCPCS: 36415; 51702; 51798; 71046; 74178; 76770; 80048; 81001; 81015; 82553; 83735; 83880; 85025; 87086; 93005; 93010; 93306; 94640; J1650; J1940; J7620; Q9966